=== PATIENT | female | born 1995 | race African-American/Black ===

== ENCOUNTER 2017-04-11 00:11 | Emergency (ER) | payer BC, OTHER ==
[~2017-04-11] VITALS: Ht 165.1 cm; Wt 141.5 kg
--- NOTE | ~2017-04-11 | CT4 ---
[facility] A Service [facility] RADIOLOGY TEXT RESULTS PATIENT: CATRINA ALFONSO LOCATION: [facility] : [birth year] UNIT #: [id number] AGE: [address]: Raymond Bolden DO SEX: F ORDER DR: [id number] [facility] [place], [place] [address] [id number] MR#: [id number] Acc #: [id number] NAME: CATRINA ALFONSO. : 1995 SEX: F STUDY DATE/TIME: 04/11/2017 1:50 UNIT: AKILA ROOM: STUDY DESCRIPTION: CT Abd and Pelv Wo Cont Attending Physician: Raymond Bolden D.O. Ordering Physician: Raymond Bolden D.O. Primary Care Physician: Primary Care Physician No MEDICAL IMAGING REPORT This report is preliminary unless electronic signature is present EXAM CT abdomen and pelvis without contrast INDICATION Lower back pain for the past 2 days. Bilateral flank pain for the past [address] of the abdomen and pelvis. This CT examination was performed with one or more of the following radiation dose reduction techniques: automatic exposure control, adjustment of mA and/or kV according to patient size, and iterative reconstruction. COMPARISON None. FINDINGS ABDOMEN WITHOUT CONTRAST: Included lung bases are clear. The liver, spleen, kidneys, adrenal glands, pancreas and gallbladder unremarkable. The bowel loops are nondilated. No radiodense urinary system calculus or hydronephrosis. PELVIS WITHOUT CONTRAST: No radiodense bladder calculus. No pelvic mass or fluid. No aggressive appearing bone lesion. IMPRESSION No acute findings in the abdomen or pelvis. Dictated by... Clinton Cummings M.D. [facility] A Service [facility] RADIOLOGY TEXT RESULTS PATIENT: CATRINA ALFONSO LOCATION: [facility] : [birth year] UNIT #: [id number] AGE: [address]: Raymond Bolden DO SEX: F ORDER DR: THIS IS AN ELECTRONICALLY VERIFIED REPORT Clinton Cummings M.D. at 04/12/2017 9:55 PM SAVANNAH/kaylie TD: 04/11/2017 12:22 JOB #: [id number] MEDICAL IMAGING REPORT Page 1 of 1 COPY
[2017-04-11 01:36] LABS: URINE SOURCE CLEAN CATCH
[2017-04-11 01:44] LABS: URINE APPEARANCE CLOUDY; URINE BILIRUBIN NEG (NEG); URINE BLOOD 3+ (NEG); URINE COLOR YELLOW; URINE GLUCOSE NEG (NEG); URINE KETONE NEG (NEG); URINE LEUKOCYTE ESTERASE 3+ (NEG); URINE NITRATE NEG (NEG); URINE PH 6.5 (5-8); URINE PROTEIN TRACE (NEG); URINE SPECIFIC GRAVITY 1.018 (1.003-1.035); URINE UROBILINOGEN 0.2 MG/DL (NEG)
[2017-04-11 01:45] LABS: CULTURE INDICATED? YES; URINE BACTERIA AUWI 1+ (NEGATIVE); URINE SQUAMOUS EPITHELIAL CELL NONE SEEN /[HPF]; UWBCS1 AUWI INNUM (0-5)
[2017-04-11 03:13] LABS: BASOPHIL% 0.6 % (0-2.5); EOSINOPHIL# 0.2 X10e3 (0-0.7); EOSINOPHIL% 2.7 % (0.0-7.0); HEMATOCRIT 36.2 % (35.0-45.0); HEMOGLOBIN 11.4 gm/dL (12.0-16.0); LYMPHOCYTE# 2.7 X10e3 (1.0-3.5); LYMPHOCYTE% 41.8 % (17.0-45.0); MEAN CELL VOLUME 75.3 FL (83-96); MEAN CORPUSCULAR HEMOGLOBIN 23.7 PG (28-34); MEAN CORPUSCULAR HGB CONC 31.4 g/dL (30-36); MEAN PLATELET VOLUME 8.7 FL (6.5-11.5); MONOCYTE# 0.4 X10e3 (0-1.0); MONOCYTE% 6.7 % (3.0-12.0); NEUTROPHIL# 3.2 X10e3 (1.5-7.1); NEUTROPHIL% 48.2 % (40-75); PLATELET COUNT 282 X10e3 (140-420); RED CELL DISTRIBUTION WIDTH 16.1 % (11.0-15.5); WHITE BLOOD COUNT 6.6 X10e3 (4.0-10.5)
[2017-04-11 03:17] LABS: DIFF IND NO
[2017-04-11 03:45] LABS: BUN/CREATININE RATIO 16.66; CALCIUM SERUM 8.7 mg/dL (8.4-10.2); CREATININE SERUM 0.6 mg/dL (0.6-1.4); POTASSIUM 3.6 mmol/L (3.5-5.1)
== END 2017-04-11 04:27 | disposition home or self-care (01) ==
LOC: CED 00:11
PROVIDERS: Emergency Medicine
DX: N39.0 Urinary tract infection, site not specified (principal); J45.909 Unspecified asthma, uncomplicated
CPT/HCPCS: 36415; 74176; 80048; 81003; 84703; 85025; 87086; 87088; 96372; 99284; J0696